=== PATIENT | male | born 1945 | race Caucasian/White ===

== ENCOUNTER 2020-01-31 21:32 | Inpatient (IN) | payer MEDICARE, OTHER ==
[~2020-01-31] VITALS: Ht 162.6 cm; Wt 77.1 kg
[~2020-01-31 21:32] MED LIST: ACETAMINOPHEN 650 MG/20.3 ML UDC GT PRN
[2020-01-31] MEDS ORDERED: IV NS 0.9% 1,000 ML IV ONE ×2 (21:38→23:30)
--- NOTE | 2020-01-31 21:45 | NUR ---
PATIENT CAME TO ER BED 8 C/O SYNCOPAL EVENT AT HOME. PATIENT STATES THAT HE TRIPPED AND FELL. PATIENT STATES THAT HE HIT HIS FOREHEAD. DENIES LOSING CONSCIOUSNESS. PATIENT CURRENTLY DENIES ANY PAIN. PATIENT IS AAOX4. BREATHING EVENLY AND UNLABORED ON 6L N/C. CONNECTED TO FLAT SHEET MAKER.
--- NOTE | 2020-01-31 21:46 | NUR ---
xray at bedside
[2020-01-31] MEDS ORDERED: ACETAMINOPHEN ES 500 MG TABLET ONE (21:48)
[2020-01-31] MEDS ORDERED: ACETAMINOPHEN ES 500 MG TABLET PO ONE (22:00)
--- NOTE | 2020-01-31 22:05 | NUR ---
BLOOD AND CULTURES ARE DRAWN AND SENT TO LAB
[2020-01-31 22:23] LABS: LYMPHOCYTES # (AUTO) 0.5 /CMM (0.8-4.8); MONOCYTES # (AUTO) 0.4 /CMM (0.1-1.30); NEUTROPHILS # (AUTO) 3.7 /CMM (1.8-8.9); WHITE BLOOD COUNT (AUTO) 4.6 K/uL (4.3-11.0)
[2020-01-31 22:27] LABS: BASOPHILS % (AUTO) 0.5 % (0.0-2.0); HEMATOCRIT 43 % (39-51); HEMOGLOBIN 14.9 g/dL (13.5-17.5); LYMPHOCYTES % (AUTO) 10.1 % (20.0-44.0); MEAN CORPUSCULAR HGB CONC 35 g/dl (31.0-36.0); MEAN CORPUSCULAR VOLUME 97 fL (80-96); MONOCYTES % (AUTO) 7.8 % (2.0-12.0); NEUTROPHILS % (AUTO) 81.6 % (43.0-81.0); RED BLOOD CELL COUNT(AUTO) 4.42 MIL/uL (4.5-6.0)
[2020-01-31 22:29] LABS: PLATELET COUNT (AUTO) 95 /CMM (150-450)
--- NOTE | 2020-01-31 22:45 | NUR ---
DR. MOYER SPEAKING WITH HOSPITALIST, JUAN ALBERTO WICK, HIGH SCHOOL HOME ECONOMICS TEACHER
--- NOTE | 2020-01-31 22:52 | NUR ---
CALLED FOR BED FORM NURSE SUP
[2020-01-31 22:59] LABS: CALCIUM, SERUM 8.4 mg/dL (8.5-10.1); CARBON DIOXIDE 27 mmol/L (21-32); CHLORIDE 102 mmol/L (98-107); CREATININE 1.1 mg/dL (0.6-1.3); GLUCOSE 204 mg/dL (74-106); POTASSIUM 3.6 mmol/L (3.5-5.1); SODIUM SERUM 138 mmol/L (136-145); UREA NITROGEN, BLOOD 23 mg/dL (7-18)
[2020-01-31 23:14] LABS: ALANINE AMINOTRANSFERASE 34 U/L (12-78); ALBUMIN 2.8 g/dL (3.4-5.0); ALKALINE PHOSPHATASE 70 U/L (46-116); ASPARTATE AMINOTRANSFERASE 58 U/L (15-37); B-TYPE NATRIURETIC PEPTIDE 475 PG/ML (0-125); TOTAL PROTEIN, SERUM 7.1 g/dL (6.4-8.2)
--- NOTE | 2020-01-31 23:15 | NUR ---
CORONAVIRUS SAMPLE SWAB COLLECTED AND SENT TO THE LAB.
[2020-01-31] MEDS ORDERED: ONDANSETRON HCL/PF 4 MG/2 ML VIAL IVP PRN (23:30)
[2020-01-31] MEDS ORDERED: ACETAMINOPHEN 325 MG TABLET PO PRN (23:30)
[2020-01-31] MEDS ORDERED: ALBUTEROL SULFATE 8 GM HFA.AER.AD IH PRN (23:30)
[2020-01-31] MEDS ORDERED: ACETAMINOPHEN 650 MG/SUPP.RECT RC PRN (23:30)
[2020-01-31] MEDS ORDERED: LIDOCAINE 2% JEL UROJET 10 ML MM ONE (23:35)
--- NOTE | 2020-01-31 23:42 | NUR ---
BED ASSIGNMENT 104
[2020-02-01] VITALS (7 sets, daily range): BP systolic 141–168; BP diastolic 72–87
[2020-02-01] MEDS ORDERED: LIDOCAINE 2% JEL UROJET 10 ML MM ONE
--- NOTE | 2020-02-01 | NUR ---
urine collected and sent to lab.
[2020-02-01 00:05] LABS: CREATINE KINASE, TOTAL 214 U/L (39-308); FERRITIN 3997 ng/mL (8-388)
--- NOTE | 2020-02-01 00:05 | NUR ---
ATTEMPTED TO CALL FOR REPORT, STAFF SAYS NURSE IS BUSY, TRY CALLING IN 5 MINUTES.
--- NOTE | 2020-02-01 00:17 | NUR ---
REPORT GIVEN TO FERNANDO MCKOY FOR BARBARA.
[2020-02-01 00:23] LABS: APPEARANCE,URINE Slightly Cloudy (CLEAR); BILIRUBIN,URINE SMALL (NEGATIVE); BLOOD, URINE Moderate Ery/uL (NEGATIVE); COLOR,URINE Amber (YELLOW); KETONES,URINE Trace (NEGATIVE); LEUKOCYTE ESTERASE ,URINE Negative (NEGATIVE); NITRITE, URINE Negative (NEGATIVE); PH,URINE 5.5 (5.0-8.0); PROTEIN,URINE 100 mg/dl (NEGATIVE); UGLUCOSE Negative (NEGATIVE)
[2020-02-01 00:26] LABS: BACTERIA,URINE Many /HPF (None Seen); SQUAMOUS EPITHELIAL CELL,UR Few /HPF (None Seen)
[2020-02-01 00:29] LABS: D-DIMER 1.46 mg/L(FEU (0.17-0.50)
--- NOTE | 2020-02-01 00:34 | NUR ---
PATIENT IS TAKEN UP TO ADMITTING ROOM.
--- NOTE | 2020-02-01 00:50 | NUR ---
DYE RANGE OPERATOR CLOTH NOTE ADMITTED 74 YEARS OLD MALE PT FROM ER WITH THE DX OF SEPSIS SECONDARY SUSPECTED COVID 19 WITH PNA BY RICKSHAW DRIVER DELANO. PT IS A/O X 4, CROATIAN SPEAKING. NO DISTRESS OR DISCOMFORT NOTED. DENIES PAIN. VSS. MASK IS ON MOUTH AND NOSE INTACT. REMINDED PT NOT TO REMOVE IT. SKIN ASSESSMENT DONE.SKIN INTACT. NOTED ENLARGED SCROTUM. PER PT NO PAIN. ADMITTING ORDERS CHECKED. AND CARRIED OUT. ORIENTED THE PT TO HIS ROOM. RAC #20 G IV LINE INTACT. STARTED IVF NS AT 50 ML/HR, NO S/S OF INFILTRATION NOTED. KEPT HIM DRY AND CLEAN. ALL NEEDS ATTENDED. SIDE RAILS UP X 2 AND CALL LIGHT WITHIN REACH. CONTINUE TO MONITOR HIM.
--- NOTE | 2020-02-01 00:50 | NUR ---
[address] YIMI MOYER CALLED AND GAVE ORDERS FOR CEFTRIAXONE 1GM IVPB ONE DOSE NOW, AND AZITHROMYCIN 500MG IVPB ONE DOSE NOW THEN EVERY 24 HOURS. ORDER NOTED, PHARMACIST CLIF MADE AWARE.
[2020-02-01] MEDS ORDERED: CEFTRIAXONE 1 G in IV D5W 50 ML IV ONE (01:00)
--- NOTE | 2020-02-01 01:12 | NUR ---
PUBLICIST NOTE ON TELE MONITOR SB 48.
[2020-02-01 01:17] LABS: BILIRUBIN,DIRECT 0.4 mg/dL (0.0-0.2)
[2020-02-01 01:24] LABS: C-REACTIVE PROTEIN 17.8 mg/dL (0.0-0.9)
[2020-02-01] MEDS ORDERED: AZITHROMYCIN 500 MG in IV D5W 250 ML IV SCH ×3 (01:30→08:28)
[2020-02-01] MEDS ORDERED: CEFTRIAXONE 1 G VIAL ONE (01:40)
[2020-02-01] MEDS ORDERED: AZITHROMYCIN 500 MG VIAL ONE (01:54)
--- NOTE | 2020-02-01 03:55 | NUR ---
CHILDREN'S AIDE NOTE PT IN BED ASLEEP, NO DISTRESS OR DISCOMFORT NOTED. PT IS SB 42, IVF INFUSING WELL, NO S/S OF INFILTRATION NOTED.
--- NOTE | 2020-02-01 06:19 | NUR ---
CONTACT LENS ASSISTANT NOTE PT IN BED ASLEEP, AROUSABLE. NO DISTRESS OR DISCOMFORT NOTED. DENIES PAIN. IVF INFUSING WELL, NO S/S INFILTRATION NOTED. ON TELE SB 44. ALL NEEDS ATTENDED. SIDE RAILS UP X 2 AND CALL LIGHT WITHIN REACH. WILL ENDORSE TO DAY SHIFT NURSE FOR CONTINUE TO CARE.
--- NOTE | 2020-02-01 07:20 | NUR ---
AIR SURVEILLANCE OPERATOR NOTES PATIENT IN BED ALERT ORIENTED X 3. NO ACUTE DISTRESS NOTED. BREATHING UNLABORED. IV ACCESS PATENT AND INTACT, NO REDNESS NO SWELLING NOTED. SAFETY MEASURES IN PLACE, CALL LIGHT WITHIN EACH WILL CONTINUE TO MONITOR ACCORDINGLY
[2020-02-01] MEDS: methylPREDNISolone SOD SUCC 40 MG/ML VIAL IV SCH ×3 (08:58→16:06)
[2020-02-01] MEDS: ENOXAPARIN SODIUM 40 MG/0.4 ML DISP.SYRIN SQ SCH (08:58)
[2020-02-01] MEDS: CEFEPIME 2 GM in IV D5W 100 ML IV SCH ×2 (12:30→22:29)
--- NOTE | 2020-02-01 17:00 | NUR ---
CUSHION BUILDER NOTES RECEIVED PATIENT FROM EMERGENCY ROOM , ALERT ORIENTED X 3. NO ACUTE DISTRESS NOTED. NO SOB NOTED. BREATHING UNLABORED. ORIENTED TO THE ROOM. NEEDS ATTENDED AND ANTICIPATED. WILL CONTINUE TO MONITOR PATIENT. Addendum: 02/01/20 at 1746 by TIANNA ANDRES RN disregard above notes, wrong patient
--- NOTE | 2020-02-01 18:51 | NUR ---
DIPPER CLOCK AND WATCH HANDS NOTES PATIENT IN BED ALERT ORIENTED X 3. NO ACUTE DISTRESS NOTED. BREATHING UNLABORED. IV ACCESS PATENT AND INTACT, NO REDNESS NO SWELLING NOTED. SAFETY MEASURES IN PLACE. NEEDS ATTENDED AND ANTICIPATED. KEPT CLEAN DRY AND COMFORTABLE. CALL LIGHT WITHIN EACH . WILL ENDORSE TO NIGHT NURSE FOR CONTINUITY OF CARE.
--- NOTE | 2020-02-01 19:45 | NUR ---
RN OPENING NOTE PT RECEIVED IN BED LAYING DOWN COMFORTABLY. PT IS A/A/O X4.THERE IS NO S/S OF DISTRESS. PT ON 6 L VIA NC SATING 95%. PT HAS UNLABORED BREATHING. PT HAS 20 G ON RAC RUNNING NS 50 ML /H. IV DRESSING IS INTACT. SAFETY MEASURES IN PLACE BED AT LOWEST POSITION, LOCKED, CALL LIGHT IN REACH ,S FLIP RAILS UP X2. WILL CONTINUE TO MONITOR.
--- NOTE | 2020-02-01 20:20 | NUR ---
RN NOTE PT ON 6 L NC DSATTING FROM 95% TO 85%. NO S/S OF RESPIRATORY DISTRESS, NO SOB.RT PUT NON REBREATHER MASK ON 15 L AND O2 SAT IS 94%. EVENT MANAGER MADE AWARE ( JUAN ALBERTO). WILL CONTINUE TO MONITOR.
--- NOTE | 2020-02-01 23:00 | NUR ---
BUSINESS ACCOUNT EXECUTIVE NOTE SERGER DELANO VISITED THE PT, PT REMAIN ON NRB MASK WITH 15L O2 SAT 93%, PER SERGER CONTINUE TO MONITOR HIM. CXR IN AM AND IF DE SAT THEN DO ABG. CONTINUE TO MONITOR .
[2020-02-01] MEDS: AZITHROMYCIN 500 MG in IV D5W 250 ML IV SCH (23:40)
[2020-02-02] VITALS (34 sets, daily range): BP systolic 78–221; BP diastolic 39–132
[2020-02-02 00:27] LABS: ABG BASE EXCESS -2.6 mmol/L; ABG PH 7.482 (7.350-7.450); ABG PO2 59.2 mmHg (75.0-100.0); AaDO2 627.8 mmHg; COHb 0.8 % (0.5-1.5); MetHb 0.3 % (0.0-1.5); SITE, ABG Right Brachial; VENT MODE, BG NRB 100%
[2020-02-02] MEDS ORDERED: FUROSEMIDE 20 MG/2 ML VIAL IV SCH (00:30)
--- NOTE | 2020-02-02 00:33 | NUR ---
MARBLE INSTALLER SUPERVISOR NOTE DELANO INVENTORY WORKER VISITED AND GAVE NEW ORDER, ORDER NOTED AND CARRIED OUT.
[2020-02-02] MEDS ORDERED: POTASSIUM CHLORIDE 20 MEQ TAB.PRT.SR PO ONE (01:00)
--- NOTE | 2020-02-02 02:18 | NUR ---
MEDICAL ORDERLY NOTE PT KEPT ON REMOVING THE NRB MASK O2 SAT DROPPING. INFORMED KE HAND WEAVER AND RECEIVED NEW ORDER FOR SOFT WRIST RESTRAINTS. CONTINUE TO MONITOR HIM BY NURSE NATARAJAN.
--- NOTE | 2020-02-02 03:00 | NUR ---
STEEL CONSTRUCTION WORKER NOTE PT DESATURATING 86% ON 15L NRB MASK. INFORMED KE NOVELTY WORKER. RECEIVED NEW ORDER TO TRANSFER THE PT TO ICU. ORDER NOTED AND CARRIED OUT.
--- NOTE | 2020-02-02 03:05 | NUR ---
RN NOTE PT O2 SAT IS GOING DOWN TO 86% WHILE ON 15 L VIA NON REBREATHER , PT IS BEING TRANSFERRED TO ICU.
--- NOTE | 2020-02-02 03:35 | NUR ---
RN NOTE PT TRANSFERRED TO ICU PER ACLS PROTOCOL. REPORT GIVEN TO THE NURSE AT BED SIDE.
--- NOTE | 2020-02-02 03:35 | NUR ---
RN NOTES RECEIVED TRANSFERRED PATIENT FROM [facility]. PATIENT IS AOX3 ABLE TO COMMUNICATE WITH O2 15LPM VIA NON REBREATHER MASK UNLABORED BREATHING SATURATION 87% UNKNOWN MEDICAL HISTORY. STRICTLY ON ISOLATION TO R/O COVID 19 PNA. INFORMED ABG OF PO2 59.2 PCO2 26 PH 7.482, HCO3 19 AWAITING FOR ORDER. IV SITE ON RAC INTACT AND PATENT. KEPT PT CLEAN AND DRY. SKIN IS INTACT. CALL LIGHT KEPT WITHIN EASY REACH. WILL CLOSELY MONITOR
[2020-02-02] MEDS ORDERED: FUROSEMIDE 20 MG/2 ML VIAL IV ONE (04:00)
[2020-02-02 04:35] LABS: BASOPHILS % (AUTO) 0.2 % (0.0-2.0); HEMATOCRIT 49 % (39-51); HEMOGLOBIN 16.5 g/dL (13.5-17.5); LYMPHOCYTES # (AUTO) 0.5 /CMM (0.8-4.8); LYMPHOCYTES % (AUTO) 8.8 % (20.0-44.0); MEAN CORPUSCULAR HGB CONC 34 g/dl (31.0-36.0); MEAN CORPUSCULAR VOLUME 98 fL (80-96); MONOCYTES # (AUTO) 0.3 /CMM (0.1-1.30); NEUTROPHILS # (AUTO) 4.6 /CMM (1.8-8.9); PLATELET COUNT (AUTO) 110 /CMM (150-450); RED BLOOD CELL COUNT(AUTO) 4.99 MIL/uL (4.5-6.0); WHITE BLOOD COUNT (AUTO) 5.4 K/uL (4.3-11.0)
[2020-02-02 04:46] LABS: ALANINE AMINOTRANSFERASE 26 U/L (12-78); ALBUMIN 2.6 g/dL (3.4-5.0); ALKALINE PHOSPHATASE 60 U/L (46-116); ASPARTATE AMINOTRANSFERASE 46 U/L (15-37); CARBON DIOXIDE 22 mmol/L (21-32); CHLORIDE 102 mmol/L (98-107); CREATININE 1.1 mg/dL (0.6-1.3); GLUCOSE 326 mg/dL (74-106); PHOSPHORUS 2.1 mg/dL (2.5-4.9); POTASSIUM 3.6 mmol/L (3.5-5.1); SODIUM SERUM 137 mmol/L (136-145); TOTAL PROTEIN, SERUM 7.1 g/dL (6.4-8.2); UREA NITROGEN, BLOOD 18 mg/dL (7-18)
--- NOTE | 2020-02-02 05:51 | NUR ---
RN NOTES ASSISTED TO COMMODE BM X 1 AND USE URINAL WITH ASSIST.FREQ. REMINDED TO USE CALL LIGHT FOR ASSISTANCE. BED IN LOWEST POSSIBLE POSITION. OTONIEL. SOFT WRIST RESTRAINT RELEASE PATIENT IS COMPLIANT WITH CARE AT THIS TIME WITHOUT PULLING ANYTHING. WILL CONTINUE TO MONITOR.
[2020-02-02 05:58] LABS: FERRITIN 3435 ng/mL (8-388)
[2020-02-02] MEDS ORDERED: INSULIN REGULAR, HUMAN 100 UNIT/ML 3 ML VIAL SQ PRN ×2 (08:00→18:00)
[2020-02-02] MEDS ORDERED: DEXTROSE 50%-WATER 50 ML DISP.SYRIN IV PRN ×2 (08:00→14:00)
[2020-02-02] MEDS ORDERED: BLOOD SUGAR DIAGNOSTIC 1 EACH STRIP VI SCH ×2 (08:00→18:00)
[2020-02-02] MEDS ORDERED: *INSULIN REGULAR(HUMULIN R)HUM 100 UNIT/ML VIAL SQ PRN (08:00)
[2020-02-02] MEDS: methylPREDNISolone SOD SUCC 40 MG/ML VIAL IV SCH ×3 (08:49→17:21)
[2020-02-02] MEDS: ENOXAPARIN SODIUM 40 MG/0.4 ML DISP.SYRIN SQ SCH (08:50)
[2020-02-02] MEDS: CEFEPIME 2 GM in IV D5W 100 ML IV SCH ×2 (10:18→21:31)
[2020-02-02 10:29] LABS: ABG BASE EXCESS -0.4 mmol/L; ABG OXYGEN SATURATION 86.9 % (92.0-98.5); ABG PCO2 27.3 mmHg (35.0-45.0); ABG PH 7.504 (7.350-7.450); AaDO2 637.7 mmHg; COHb 0.6 % (0.5-1.5); MetHb 0.3 % (0.0-1.5); O2Hb 86.1 % (94.0-97.0); SITE, ABG Right Brachial; VENT MODE, BG HFNC 100%
--- NOTE | 2020-02-02 10:45 | NUR ---
ABG DONE ON HIGH FLOW-100% AT 60 LITERS. RESULTS REPORTE TO DR. SEVERINO AND DR. SALAZAR. OKAY TO INTUBATE. FAMILY MADE AWARE , SPOKE TO LANE AND UPDATED WITH PLAN OF CARE. AGREED TO INTUBATE PATIENT. NURSING DIESEL LOCOMOTIVE FIRER/FIREMAN, SUMAN CALLED FOR ANESTHESIA INTUBATION.
[2020-02-02] MEDS ORDERED: K PHOS NEUTRAL 250 MG TABLET PO ONE (11:00)
[2020-02-02] MEDS ORDERED: PROPOFOL 10MG/ML 50ML 50 ML IV PRN (12:00)
[2020-02-02] MEDS: PROPOFOL 10MG/ML 50ML 50 ML IV PRN ×3 (13:36→21:23)
[2020-02-02 13:59] LABS: ABG BASE EXCESS -1.9 mmol/L; ABG OXYGEN SATURATION 99.8 % (92.0-98.5); ABG PCO2 35.9 mmHg (35.0-45.0); ABG PH 7.408 (7.350-7.450); ABG PO2 428.3 mmHg (75.0-100.0); AaDO2 248.8 mmHg; COHb 0.5 % (0.5-1.5); MetHb 0.2 % (0.0-1.5); O2Hb 99.1 % (94.0-97.0); PEEP,BG 10 cm H2O; SITE, ABG Right Brachial; VENT MODE, BG AC 22 500 +10 100%
[2020-02-02] MEDS ORDERED: NEUTRA PHOS 1 POWD.PACKET NG ONE (14:00)
[2020-02-02] MEDS ORDERED: ETOMIDATE 2 MG/ML VIAL IV ONE (14:19)
[2020-02-02] MEDS ORDERED: ROCURONIUM BROMIDE 50 MG/5 ML IV ONE (14:19)
[2020-02-02] MEDS: BLOOD SUGAR DIAGNOSTIC 1 EACH STRIP IN SCH (17:22)
[2020-02-02] MEDS: INSULIN REGULAR, HUMAN 100 UNIT/ML 3 ML VIAL SQ PRN (18:01)
--- NOTE | 2020-02-02 18:15 | NUR ---
ICU/RN: Pt was received awake and alert, Mauritanian speaking only. Pt was on non-rebreather mask at 15LPM. Pt kept removing the mask and was desaturating to the 70's everytime he removes the mask in spite of teaching the pt in Mauritanian by Clarisa FOURNIER how important it was. Pt was eventually put on high flow nasal canula at 100% but was still desaturating on the 80's. ABG was done as ordered, and eventually was given an order to intubate the pt. Family was informed, fitting room checker and Dr. James were okay to intubate. Propofol was initiated, NGT was placed, placement was confirmed with Guilherme drier tender. Pt remains on AC mode as ordered. Appears comfortable, afebrile all day. Estelle Vaughn (granddaughter) who is the next of kin and the spokesperson of the family was updated today, tel number placed in chart. Will give report to shift commander.
--- NOTE | 2020-02-02 19:30 | NUR ---
RN NOTES RECEIVED PATIENT WITH ETT 7 AND 22 CM AT LIPLINE WITH VENT SETTING AC 22 TV 500 FIO2 50% AND PEEP 10 TOLERATED WELL. CALM AND COOPERATIVE ON DIPRIVAN @ 15 MCG/KG/IN. SINUS KWASI ON TELE MONITOR HR 50'S. NGT INTACT AND PATENT. HOB KEPT ELEVATED. IV SITE ON RAC G 20 AND RH INTACT WITH GOOD BLOOD RETURN. KEPT CLEAN AND DRY. TURN AND REPOSITION AND KEPT PT COMFORTABLE. WILL CONTINUE WITH POC.
[2020-02-02] MEDS ORDERED: NOREPINEPHRINE 8 MG in IV NS 0.9% 242 ML IV PRN (22:00)
[2020-02-02] MEDS: AZITHROMYCIN 500 MG in IV D5W 250 ML IV SCH (23:30)
[2020-02-03] VITALS (68 sets, daily range): BP systolic 80–163; BP diastolic 39–123
[2020-02-03] MEDS: BLOOD SUGAR DIAGNOSTIC 1 EACH STRIP IN SCH ×5 (00:10→23:36)
[2020-02-03] MEDS: INSULIN REGULAR, HUMAN 100 UNIT/ML 3 ML VIAL SQ PRN ×5 (00:11→23:39)
--- NOTE | 2020-02-03 00:55 | NUR ---
RN NOTES INSERTED PICC LINE ON YOVANI AND TOLERATED WELL. GOT CONSENT FROM FARTUN, NO BLEEDING KEPT PT CLEAN AND DRY.
[2020-02-03] MEDS ORDERED: DOPamine 400 MG in IV D5W 250 ML IV PRN (02:30)
[2020-02-03] MEDS: PROPOFOL 10MG/ML 50ML 50 ML IV PRN ×4 (02:31→19:32)
[2020-02-03] MEDS ORDERED: DOPamine 400MG/D5W 250ML RTU 250 ML ONE (02:32)
--- NOTE | 2020-02-03 02:45 | NUR ---
RN NOTES DOPAMINE STARTED PER JUAN ALBERTO APPEALS REVIEWER VETERAN. PATIENT SBP IS 88 MMHG AND HR IS 48. WILL CONTINUE TO MONITOR.
[2020-02-03 04:23] LABS: BASOPHILS % (AUTO) 0.1 % (0.0-2.0); HEMATOCRIT 43 % (39-51); HEMOGLOBIN 14.6 g/dL (13.5-17.5); LYMPHOCYTES # (AUTO) 0.4 /CMM (0.8-4.8); LYMPHOCYTES % (AUTO) 7.7 % (20.0-44.0); MEAN CORPUSCULAR HGB CONC 34 g/dl (31.0-36.0); MEAN CORPUSCULAR VOLUME 99 fL (80-96); MONOCYTES # (AUTO) 0.3 /CMM (0.1-1.30); MONOCYTES % (AUTO) 5.6 % (2.0-12.0); NEUTROPHILS # (AUTO) 4.9 /CMM (1.8-8.9); NEUTROPHILS % (AUTO) 86.6 % (43.0-81.0); PLATELET COUNT (AUTO) 126 /CMM (150-450); RED BLOOD CELL COUNT(AUTO) 4.32 MIL/uL (4.5-6.0); WHITE BLOOD COUNT (AUTO) 5.6 K/uL (4.3-11.0)
[2020-02-03 05:01] LABS: CALCIUM, SERUM 7.8 mg/dL (8.5-10.1); CREATININE 1.3 mg/dL (0.6-1.3); MAGNESIUM 2.4 mg/dL (1.8-2.4); PHOSPHORUS 3.5 mg/dL (2.5-4.9)
[2020-02-03 05:33] LABS: C-REACTIVE PROTEIN 9.5 mg/dL (0.0-0.9)
--- NOTE | 2020-02-03 06:25 | NUR ---
RN OPENING NOTES Patient is orally intubated on AC 22, Peep8, Fi02 40% and Tv 500, tolerating well. client responds to light pain, and simple commands. The patient is sedated. The client is on external monitor. BP 105/39 and HR @ 78; with Peaked T waves, will continue to monitor. Client remains stable at this time. YOVANI picc running propofol at 25mcg/hr. F/C draining well. All safety mechanisms in place, will continue to monitor.
--- NOTE | 2020-02-03 07:11 | NUR ---
RN NOTES PATIENT REMAINED ORALLY INTUBATED. NO CHANGE FROM ETT AND VENT SETTING, TOLERATED WELL. NO ACUTE RESP. DISTRESS. REMAINED AOX3 DESPITE OF DIPRIVAN ONGOING. PATIENT IS CALM AND COOPERATIVE ON DIPRIVAN @ 15 MCG/KG/MIN, IV SITE ON RAC INTACT AND PATENT. DOPAMINE HELD AT THIS TIME. CONTINUE WITH ACCU CHECK. LAST BLD. SUGAR 284 MG/DL INSULIN PER SLIDING SCALE ADMINISTERED. BED BATH DONE AND TOLERATED. MEANS CATH REMAINED INTACT AND PATENT/ ENDORSED CONTINUITY OF CARE TO AM NURSE.
[2020-02-03] MEDS: ENOXAPARIN SODIUM 40 MG/0.4 ML DISP.SYRIN SQ SCH (07:50)
[2020-02-03] MEDS: methylPREDNISolone SOD SUCC 40 MG/ML VIAL IV SCH ×3 (08:09→17:18)
[2020-02-03] MEDS: CEFEPIME 2 GM in IV D5W 100 ML IV SCH ×2 (08:09→20:15)
[2020-02-03] MEDS ORDERED: HYDROCORTISONE SOD SUCCINATE 100 MG/2 ML VIAL IV SCH (09:00)
[2020-02-03] MEDS: POTASSIUM CL. PREMIX PERIPHER. 50 ML IV SCH ×5 (11:44→18:19)
[2020-02-03] MEDS ORDERED: INVESTIGATIONAL MED MISC 1 EA in IV NS 0.9% 250 ML IV ONE (15:00)
--- NOTE | 2020-02-03 18:44 | NUR ---
rn surgery icu pt remAINS orally intubated on ac 22, peep down to 8, fi02 down to 40% NOW WITH TV500, tolerating well. remains sedated on PROPOFOL. RENDESIVIR STARTED TODAY, WAITING ON THE CONVALESCENT PLASMA FOR TRANSFUSION. CONSENT OBTAINED FROM THE FAMILY. SCROTAL INFLAMMATION NOTED AND WILL ADDRESS TRAMAINE TO DR. SEVERINO, PT'S FAMILY STATED HE HAS THIS PROBLEM FOR ABOUT A YEAR NOW BUT IS GETTING BIGGER. STILL NPO EXCEPT MEDS FOR NOW, BLOOD SUGARS DONE EVERY 6 HOURS WITH INSULIN SLIDING SCALE. TODAY WAS UNEVENTFUL. WILL GIVE REPORT TO SEASONAL RETAIL MERCHANDISER
--- NOTE | 2020-02-03 23:00 | NUR ---
RN NOTES: Informed MD about the change in blood pressure: BP 80/40; HR 39; Peaked T waves. CONCRETE POLISHER approved to recheck Potassium and Magnesium. Will keep monitoring.
--- NOTE | 2020-02-03 23:01 | NUR ---
RN NOTES PROFESSOR OF ART HISTORY was also made aware that the patient has been restarted on Dopamine. See previous note for VS.
[2020-02-03] MEDS: AZITHROMYCIN 500 MG in IV D5W 250 ML IV SCH (23:27)
[2020-02-04] VITALS (80 sets, daily range): BP systolic 90–173; BP diastolic 49–104
[2020-02-04 00:05] LABS: MAGNESIUM 2.4 mg/dL (1.8-2.4); POTASSIUM 3.8 mmol/L (3.5-5.1)
[2020-02-04] MEDS: PROPOFOL 10MG/ML 50ML 50 ML IV PRN ×3 (00:55→21:30)
--- NOTE | 2020-02-04 01:38 | NUR ---
RN NOTES PATIENT STAT POTASSIUM AND MAGNESIUM LAB RESULT WNL, ON TELE MONITOR STILL HAVE PEAKED T-WAVES, CHARGE NURSE MADE AWARE AND STATED OKAY TO ORDER STAT EKG AND TROPONIN FOR AM LAB. WILL CONT TO MONITOR PT CLOSELY.
[2020-02-04 05:26] LABS: ALBUMIN 2.3 g/dL (3.4-5.0); BILIRUBIN,TOTAL 0.7 mg/dL (0.2-1.0); TOTAL PROTEIN, SERUM 6.3 g/dL (6.4-8.2)
[2020-02-04 05:43] LABS: BILIRUBIN,DIRECT 0.3 mg/dL (0.0-0.2)
[2020-02-04] MEDS: BLOOD SUGAR DIAGNOSTIC 1 EACH STRIP IN SCH ×4 (05:55→23:48)
[2020-02-04] MEDS: INSULIN REGULAR, HUMAN 100 UNIT/ML 3 ML VIAL SQ PRN ×4 (06:08→23:49)
--- NOTE | 2020-02-04 06:12 | NUR ---
RN CLOSING NOTES Patient remains orally intubated on AC 22, Peep8, Fi02 40% and Tv 500, tolerating well. The patient remains sedated. The client is on external monitor. BP 136/104 and HR @ 50; recurrent episodes of low BP, at times sbp 80/ dbp 50, with Peaked T waves, hospitalist is aware. Dopamine was given to maintain SBP > 90. Client remains stable at this time. YOVANI picc running propofol at 20mcg/hr. F/C draining well. Skin is intact. All safety mechanisms in place, will endorse the next shift for continuity of care.
[2020-02-04] MEDS: methylPREDNISolone SOD SUCC 40 MG/ML VIAL IV SCH ×3 (08:54→17:54)
[2020-02-04] MEDS: ENOXAPARIN SODIUM 40 MG/0.4 ML DISP.SYRIN SQ SCH (08:55)
[2020-02-04] MEDS: CEFEPIME 2 GM in IV D5W 100 ML IV SCH ×2 (08:57→20:30)
[2020-02-04 09:00] LABS: BASOPHILS % (AUTO) 0.3 % (0.0-2.0); HEMATOCRIT 46 % (39-51); HEMOGLOBIN 15.1 g/dL (13.5-17.5); LYMPHOCYTES # (AUTO) 0.7 /CMM (0.8-4.8); LYMPHOCYTES % (AUTO) 9.5 % (20.0-44.0); MEAN CORPUSCULAR HGB CONC 33 g/dl (31.0-36.0); MEAN CORPUSCULAR VOLUME 99 fL (80-96); MONOCYTES # (AUTO) 0.6 /CMM (0.1-1.30); MONOCYTES % (AUTO) 7.3 % (2.0-12.0); NEUTROPHILS # (AUTO) 6.4 /CMM (1.8-8.9); NEUTROPHILS % (AUTO) 82.9 % (43.0-81.0); PLATELET COUNT (AUTO) 117 /CMM (150-450); RED BLOOD CELL COUNT(AUTO) 4.63 MIL/uL (4.5-6.0); WHITE BLOOD COUNT (AUTO) 7.7 K/uL (4.3-11.0)
[2020-02-04 09:32] LABS: CREATININE 1.3 mg/dL (0.6-1.3); MAGNESIUM 2.6 mg/dL (1.8-2.4); PHOSPHORUS 3.3 mg/dL (2.5-4.9)
[2020-02-04 12:45] LABS: ABG BASE EXCESS -2.5 mmol/L; ABG OXYGEN SATURATION 93.4 % (92.0-98.5); ABG PCO2 27.1 mmHg (35.0-45.0); ABG PH 7.475 (7.350-7.450); ABG PO2 66.3 mmHg (75.0-100.0); AaDO2 187.7 mmHg; COHb 0.6 % (0.5-1.5); MetHb 0.3 % (0.0-1.5); O2Hb 92.6 % (94.0-97.0); SITE, ABG Left Brachial; VENT MODE, BG CPAP 5 PSV6 40%
[2020-02-04] MEDS: INVESTIGATIONAL MED MISC 1 EA in IV NS 0.9% 250 ML IV SCH (17:54)
--- NOTE | 2020-02-04 18:08 | NUR ---
RN/ICU: Pt was received sedated with Propofol, ET to vent on Ac mode as ordered. Sedation vacation done this am, was fully awake and was on CPAP x 1 hour, ABG was done, Dr. Lam was made aware of the results. Pt was ordered to be placed back on AC mode, Propofol restarted. NGT clamped, Cross patent and intact, 300 cc urine output. Still reciving Rendesivir, still awaiting for conv plasma. No skin breakdown noted. Will give report to building materials sales attendant. Addendum: 02/04/20 at 1841 by KAREN JOSHI RN HR drops down to 38 -40 very rarely, Hr is usually on the mid to high 40's. Dr. James and Dr. Merrill are made aware, no new order was placed. Will cont to monitor for now.
--- NOTE | 2020-02-04 19:05 | NUR ---
RN OPENING NOTES RECEIVED PT ON BED SEDATED WITH PROPOFOL @ 5MCG/KG/MIN VIA YOVANI PICC INFUSING WEL, NO SIGN AND SYMPTOMS OF RESPIRATORY DISTRESS SPO2 99% VIA ETT/VENT SETTINF ORDERED, ON BEDSIDE MONITOR WITH READING SINUS ANNETTE 37-38 BPM CHARGE NURSE AWARE, MARKETING PROPOSAL SPECIALIST ALSO AWARE PER AM SHIFT ENDORSEMENT, WILL CONT TO MONITOR, SBP IS ON 140'S TEMP IS 97.8F ON BILATERAL WRIST SOFT RESTRAINTS CIRCULATION WILL BE CHECKED REGULARLY, ON DROPLET ISOLATION FOR COVID (+) MAINTAINED, SAFETY MEASURE MAINTAINED WILL CONT TO MONITOR
[2020-02-04] MEDS: AZITHROMYCIN 500 MG in IV D5W 250 ML IV SCH (23:05)
[2020-02-05] VITALS (45 sets, daily range): BP systolic 128–197; BP diastolic 52–89
[2020-02-05] MEDS: PROPOFOL 10MG/ML 50ML 50 ML IV PRN (02:31)
[2020-02-05 04:41] LABS: BASOPHILS # (AUTO) 0.1 /CMM (0.0-0.2); BASOPHILS % (AUTO) 1.1 % (0.0-2.0); HEMATOCRIT 42 % (39-51); LYMPHOCYTES # (AUTO) 0.5 /CMM (0.8-4.8); LYMPHOCYTES % (AUTO) 9.1 % (20.0-44.0); MEAN CORPUSCULAR HGB CONC 33 g/dl (31.0-36.0); MEAN CORPUSCULAR VOLUME 100 fL (80-96); MONOCYTES # (AUTO) 0.4 /CMM (0.1-1.30); MONOCYTES % (AUTO) 6.7 % (2.0-12.0); NEUTROPHILS # (AUTO) 4.5 /CMM (1.8-8.9); NEUTROPHILS % (AUTO) 83.1 % (43.0-81.0); PLATELET COUNT (AUTO) 111 /CMM (150-450); RED BLOOD CELL COUNT(AUTO) 4.25 MIL/uL (4.5-6.0); WHITE BLOOD COUNT (AUTO) 5.4 K/uL (4.3-11.0)
[2020-02-05 05:02] LABS: ALBUMIN 2.1 g/dL (3.4-5.0); BILIRUBIN,DIRECT 0.2 mg/dL (0.0-0.2); BILIRUBIN,TOTAL 0.6 mg/dL (0.2-1.0); TOTAL PROTEIN, SERUM 5.9 g/dL (6.4-8.2)
[2020-02-05 05:08] LABS: ALANINE AMINOTRANSFERASE 34 U/L (12-78); ALBUMIN 2.1 g/dL (3.4-5.0); ALKALINE PHOSPHATASE 53 U/L (46-116); ASPARTATE AMINOTRANSFERASE 33 U/L (15-37); BILIRUBIN,TOTAL 0.6 mg/dL (0.2-1.0); CALCIUM, SERUM 7.9 mg/dL (8.5-10.1); CARBON DIOXIDE 26 mmol/L (21-32); CHLORIDE 109 mmol/L (98-107); CREATININE 1.2 mg/dL (0.6-1.3); GLUCOSE 262 mg/dL (74-106); MAGNESIUM 2.8 mg/dL (1.8-2.4); PHOSPHORUS 3.4 mg/dL (2.5-4.9); POTASSIUM 3.8 mmol/L (3.5-5.1); SODIUM SERUM 143 mmol/L (136-145); TOTAL PROTEIN, SERUM 5.9 g/dL (6.4-8.2); UREA NITROGEN, BLOOD 47 mg/dL (7-18)
[2020-02-05] MEDS: BLOOD SUGAR DIAGNOSTIC 1 EACH STRIP IN SCH ×4 (05:59→23:36)
[2020-02-05] MEDS: INSULIN REGULAR, HUMAN 100 UNIT/ML 3 ML VIAL SQ PRN ×4 (06:03→23:36)
--- NOTE | 2020-02-05 08:00 | NUR ---
RN NOTES PT ON BED ASLEEP EASY TO AWAKE ON PROPOFOL @ 5MCG/KG/MIN, STILL ON ETT/VENT SETTING ORDERED TOLERATING WELL SPO2 99%, NO SIGNIFICANT CHANGES ON CONDITION NOTED, HR STILL ON 38-[address] NGUYỄN AWARE WITH NO NEW ORDER, DROPLET ISOLATION MAINTAINED SAFETY PRECAUTION OBSERVE, WILL CONT TO MONITOR
[2020-02-05] MEDS: ENOXAPARIN SODIUM 40 MG/0.4 ML DISP.SYRIN SQ SCH (08:02)
[2020-02-05] MEDS: methylPREDNISolone SOD SUCC 40 MG/ML VIAL IV SCH ×3 (08:03→16:49)
[2020-02-05] MEDS: CEFEPIME 2 GM in IV D5W 100 ML IV SCH ×2 (08:31→21:00)
--- NOTE | 2020-02-05 10:00 | NUR ---
RN NOTES SEEN BY DR. SEVERINO WITH ORDER FOR US SCROTUM CONTENT, SEEN BY DR SALAZAR WITH ORDER TO STOP PROPOFOL AND CHANGES VENT SETTING TO CPAP PEEP +5 AND PSV 10 THEN DO ABG AFTER 1 HR, NOTED AND CARRIED OUT
[2020-02-05 12:22] LABS: ABG BASE EXCESS -1.4 mmol/L; ABG OXYGEN SATURATION 94.1 % (92.0-98.5); ABG PCO2 29.4 mmHg (35.0-45.0); ABG PH 7.467 (7.350-7.450); ABG PO2 69.2 mmHg (75.0-100.0); AaDO2 182.2 mmHg; COHb 0.8 % (0.5-1.5); MetHb 0.2 % (0.0-1.5); O2Hb 93.2 % (94.0-97.0); SITE, ABG Left Radial; VENT MODE, BG CPAP
[2020-02-05] MEDS: INVESTIGATIONAL MED MISC 1 EA in IV NS 0.9% 250 ML IV SCH (18:15)
--- NOTE | 2020-02-05 18:49 | NUR ---
RN NOTES PT ON BED ASLEEP EASY TO AWAKE ON STILL ON ETT/VENT SETTING ORDERED TOLERATING WELL SPO2 99%, NO SIGNIFICANT CHANGES ON CONDITION NOTED, HR STILL ON 38-[address] NGUYỄN AND DR. SEVERINO AWARE WITH NO NEW ORDER, DROPLET ISOLATION MAINTAINED SAFETY PRECAUTION OBSERVE, WILL CONT TO MONITOR
--- NOTE | 2020-02-05 20:00 | NUR ---
Received patient awake non verbal orally intubated follows simple commands.Patient tachypneic RR 44 on CPAP 40% sating 97%.SB 39-40's..BP elevated MD aware.No orders.OGT intact and clamped.NPO status.IVF NS at TKO infusing via YOVANI PICC Line and site intact.FC to gravity. Turned and reposition.Dx: SEPSIS,COVID 19+.Droplet/Contact isolation precaution implemented. Continue monitoring.
--- NOTE | 2020-02-05 22:00 | NUR ---
Patient remains tachypeic RR 38-45, BP 185-76 patient looks tired.RT notified and changed vent settings to previous settings AC 22,TV 500 ,FIO2 40%,PEEP 5.SECRETARY TO THE VICE PRESIDENT,[place] notified. Continue to monitor.
[2020-02-05] MEDS: AZITHROMYCIN 500 MG in IV D5W 250 ML IV SCH (23:34)
[2020-02-06] VITALS (28 sets, daily range): BP systolic 118–179; BP diastolic 56–93
[2020-02-06 04:51] LABS: ALBUMIN 2.1 g/dL (3.4-5.0); BILIRUBIN,DIRECT 0.3 mg/dL (0.0-0.2); BILIRUBIN,TOTAL 0.7 mg/dL (0.2-1.0); TOTAL PROTEIN, SERUM 5.7 g/dL (6.4-8.2)
[2020-02-06] MEDS: INSULIN REGULAR, HUMAN 100 UNIT/ML 3 ML VIAL SQ PRN ×4 (05:06→23:26)
[2020-02-06] MEDS: BLOOD SUGAR DIAGNOSTIC 1 EACH STRIP IN SCH ×4 (05:29→23:23)
--- NOTE | 2020-02-06 07:13 | NUR ---
Patient resting appears comfortable.SB 45.SBP still on 170's.No distress noted.Tolerating vent settings on AC mode. Turned and repositioned.All needs met.Report given to day shift RN for continuity of care to follow up with MD regarding elevated BP.
--- NOTE | 2020-02-06 07:15 | NUR ---
RN OPENING NOTE Received patient awake in bed calm and relacxed, no signs of distress. Has ETT 02/21 and on vent settings: AC 22 TV 500 FIO2 40% PEEP 5. Patient is AO X2. Tele monitor reading SB 48bpm. Has balderas catheter draining clear yellow urine by gravity. Bilateral soft wrist restraints in place. Noted with YOVANI PICC line, RAC and R Hand. Safety measures reinforced. Call light within reach. Bed on locked and lowest position. Will cont to monitor.
[2020-02-06] MEDS: CEFEPIME 2 GM in IV D5W 100 ML IV SCH ×2 (08:24→21:56)
[2020-02-06] MEDS: methylPREDNISolone SOD SUCC 40 MG/ML VIAL IV SCH ×3 (08:24→17:06)
[2020-02-06] MEDS: ENOXAPARIN SODIUM 40 MG/0.4 ML DISP.SYRIN SQ SCH (08:24)
--- NOTE | 2020-02-06 12:51 | NUR ---
OK TO START GT FEEDING PER DR. SEVERINO. WILL START GLUCERNA 1.2 @ 20ML/HR PATIENT IS DIABETIC. DIETARY CONSULT ORDERED.
--- NOTE | 2020-02-06 12:59 | NUR ---
SPOKE TO DR. NGUYỄN FOR BP MED PRN INFORMED PATIENT IS BRADYCARDIC 30-40S. DR. NGUYỄN ORDERED HYDRALAZINE 50MG TID.
[2020-02-06] MEDS: hydrALAZINE HCL 50 MG TABLET GT SCH ×2 (13:14→17:06)
[2020-02-06] MEDS ORDERED: GLUCERNA 1.2 1,000 ML BOTTLE NG SCH (13:30)
--- NOTE | 2020-02-06 15:31 | NUR ---
FOLLOWED UP WITH CXR RESULTS
--- NOTE | 2020-02-06 15:32 | NUR ---
UNABLE TO START FEEDING PER CENTRAL SUPPLY NO FEEDING PUMPS RIGHT NOW.
[2020-02-06] MEDS: INVESTIGATIONAL MED MISC 1 EA in IV NS 0.9% 250 ML IV SCH (18:22)
--- NOTE | 2020-02-06 18:33 | NUR ---
RN CLOSING NOTE Patient in bed no signs of distress. Still on ETT 02/21 vent settings as follows: AC 22 TV 500 FIO2 40% PEEP 5 tolerating well. appears calm and relaxed. Patient AO x1 non verbal. Tele monitor reading SB 50-60s. Tay gomez
--- NOTE | 2020-02-06 18:40 | NUR ---
RN CLOSING NOTE Patient in bed no signs of distress. Still on ETT 02/21 vent settings as follows: AC 22 TV 500 FIO2 40% PEEP 5 tolerating well. appears calm and relaxed. Patient AO x1 non verbal. Tele monitor reading SB 50-60s. Cross catheter drained 500ml the whole shift. Scrotum ultrasound normal, results placed in chart. Bilateral soft restraints on wrist checked for circulation all throughout the day. Waiting for feeding pump to be available. Will endorse. All due meds given. Cont on ATB no signs of adverse reaction to medications. CXR results in the chart as well. Safety measures reinforced. Vital signs maintained within normal limits. Call light within reach. Bed locked and on lowest position. Will endorse to special education itinerant teacher nurse for doc.
--- NOTE | 2020-02-06 19:40 | NUR ---
RN NOTES RECEIVED PATIENT WITH ETT 7 AND 22 CM AT LIPLINE WITH VENT SETTING AC 22 TV 500 FIO2 50% AND PEEP 8 TOLERATED WELL. PT ASLEEP AT THIS TIME NO SEDATION . SINUS ANNETTE ON TELE MONITOR HR 50'S. NGT INTACT, PATENCY CHECKED. HOB KEPT ELEVATED. IV SITE ON RAC G 20 AND RH INTACT WITH GOOD BLOOD RETURN. WITH MEANS CATH DRAINED VIA GRAVITY KEPT OFF FROM THE FLOOR. KEPT CLEAN AND DRY. TURN AND REPOSITION MUCH POSSIBLE. AND KEPT PT COMFORTABLE. WILL CONTINUE WITH POC.
[2020-02-06] MEDS ORDERED: AZITHROMYCIN 500 MG VIAL ONE (22:39)
[2020-02-06] MEDS: PROPOFOL 10MG/ML 50ML 50 ML IV PRN (22:59)
[2020-02-06] MEDS: AZITHROMYCIN 500 MG in IV D5W 250 ML IV SCH (23:20)
[2020-02-07] VITALS (32 sets, daily range): BP systolic 113–168; BP diastolic 45–131
[2020-02-07 04:40] LABS: BILIRUBIN,DIRECT 0.3 mg/dL (0.0-0.2); BILIRUBIN,TOTAL 0.7 mg/dL (0.2-1.0); TOTAL PROTEIN, SERUM 5.4 g/dL (6.4-8.2)
[2020-02-07] MEDS: BLOOD SUGAR DIAGNOSTIC 1 EACH STRIP IN SCH ×3 (05:57→17:41)
[2020-02-07] MEDS: INSULIN REGULAR, HUMAN 100 UNIT/ML 3 ML VIAL SQ PRN ×3 (05:58→17:34)
--- NOTE | 2020-02-07 06:54 | NUR ---
RN NOTES REMAINED ON DROPLET /CONTACT ISOLATION DUE TO COVID 19 AND E. COLI ON URINE. NO SIGNIFICANT CHANGES THROUGHOUT THE SHIFT. AFEBRILE. VSS WITHOUT PRESSORS. ETT AND VENT SETTING TOLERATED WELL. PATIENT IS FOLLOWING COMMANDS. NGT INTACT AND PATENT. IV SITE ON YOVANI PICC LINE INTACT, WITH CLEAN DRESSING. SB ON TELE MONITOR. LOWEST HR 48. NO APPARENT RESPIRATORY DISTRESS. DENIES PAIN. CONTINUE WITH ACCUCHECK , INSULIN PER SLIDING SCALE ADMINISTERED. KEPT PT CLEAN AND DRY. WILL CONTINUE POC.
--- NOTE | 2020-02-07 07:39 | NUR ---
HAND CLIPPER NOTES PATIENT IN BED WITH VENT SETTING ORDERED , REMAINED ON DROPLET /CONTACT ISOLATION DUE TO COVID 19 AND E. COLI ON URINE. . ETT AND VENT SETTING TOLERATED WELL. NGT INTACT AND PATENT. IV SITE ON YOVANI PICC LINE INTACT, WITH CLEAN DRESSING. SB ON TELE MONITOR. LOWEST HR 51. NO APPARENT RESPIRATORY DISTRESS AT THIS TIME DENIES PAIN. KEPT PT CLEAN AND DRY. WILL CONTINUE POC. WITH MEANS CATH TO GRAVITY RT UPPER ARM PICC LINE IN PLACE , BED IN LOWEST AND LOCKED POSITION
[2020-02-07] MEDS: CEFEPIME 2 GM in IV D5W 100 ML IV SCH ×2 (08:13→21:07)
[2020-02-07] MEDS: methylPREDNISolone SOD SUCC 40 MG/ML VIAL IV SCH ×3 (08:15→16:01)
[2020-02-07] MEDS: hydrALAZINE HCL 50 MG TABLET GT SCH ×3 (08:15→16:02)
[2020-02-07] MEDS: ENOXAPARIN SODIUM 40 MG/0.4 ML DISP.SYRIN SQ SCH (08:17)
--- NOTE | 2020-02-07 09:13 | NUR ---
DEICER TESTER NOTE PER DR GRANT AND RT PATIENT ON SIMV SETTING,TOLERATED WELL, SAT 95%
[2020-02-07 10:11] LABS: ABG BASE EXCESS -2.9 mmol/L; ABG OXYGEN SATURATION 97.8 % (92.0-98.5); ABG PCO2 26.9 mmHg (35.0-45.0); ABG PO2 101.4 mmHg (75.0-100.0); AaDO2 152.9 mmHg; COHb 0.5 % (0.5-1.5); MetHb 0.1 % (0.0-1.5); O2Hb 97.2 % (94.0-97.0); SITE, ABG Right Radial
--- NOTE | 2020-02-07 10:32 | NUR ---
SOFTWARE TEST SPECIALIST NOTE ABG DONE DR LOREDO AWARE OF RESULT. WILL BE EXTUBATED BY RT , WILL F\U
--- NOTE | 2020-02-07 10:45 | NUR ---
CARE TRANSITIONS NURSE NOTE EXTUBATED ORDERED, PLACED O 4L OF O2 NC, SAT 94% AT THIS TIME, WILL MONITOR
--- NOTE | 2020-02-07 12:42 | NUR ---
agricultural plow operator note seen by dr chidi Tavares notified that platelets 111 ,ok to give Lovenox also aware that scrotum is swollen, keep elevated ,no new order given at this time
--- NOTE | 2020-02-07 15:00 | NUR ---
CERTIFIED ENERGY MANAGER NOTE CONT ON NG TUBE FEEDING ORDERED , PLACEMENT CHECKED BY AUSCULTATION , NOTED RESIDUAL 10 ML ,KEEP HOB ELEVATED AT ALL TIME
[2020-02-07] MEDS: INVESTIGATIONAL MED MISC 1 EA in IV NS 0.9% 250 ML IV SCH (17:43)
--- NOTE | 2020-02-07 18:52 | NUR ---
ELECTRICIAN CONSTRUCTOR SUPERVISOR NOTE CONT ON 4L NC ,SAT 96% ,UNABLE TO REMOVE SOFT RESTRAIN ,PATENT AT RISK TO REMOVE ALL LINES , CONT ON N G TUBE FEEDING TOLERATED, KEEP HOB ELEVATED AT ALL TIME , BP125/78 WILL MONITOR, BED IN LOWEST AND LOCKED POSITION , CALL LIGHT WITHIN REACH
--- NOTE | 2020-02-07 19:20 | NUR ---
RN NOTES RECEIVED PATIENT AWAKE ON BED WITH O2 @ 4LPM VIA NC SATURATION 97% , NO RESPIRATORY DISTRESS. PATIENT SMILING AND WAVING HIS HANDS. DROPLET /CONTACT ISOLATION PRECAUTION STRICTLY OBSERVED DUE TO + COVID 19. SINUS ANNETTE ON TELE MONITOR HR 58. NGT INTACT WITH FEEDING OF GLUCERNA 1.2 @ 20 ML/HR INTACT, PATENCY CHECKED. HOB KEPT ELEVATED. IV SITE ON RAC G 20, RH, AND YOVANI PICC LINE ARE INTACT WITH GOOD BLOOD RETURN. PATIENT HAS MEANS CATH DRAINED VIA GRAVITY WITH YELLOW CLEAR COLOR URINE, KEPT BAG OFF FROM THE FLOOR. KEPT CLEAN AND DRY. TURN AND REPOSITION MUCH POSSIBLE. AND KEPT PT COMFORTABLE. WILL CONTINUE WITH POC.
[2020-02-07] MEDS: AZITHROMYCIN 250 MG TABLET GT SCH (23:09)
[2020-02-08] VITALS (29 sets, daily range): BP systolic 96–163; BP diastolic 43–98
[2020-02-08] MEDS: BLOOD SUGAR DIAGNOSTIC 1 EACH STRIP IN SCH ×5 (00:59→23:52)
[2020-02-08] MEDS: INSULIN REGULAR, HUMAN 100 UNIT/ML 3 ML VIAL SQ PRN ×5 (00:59→23:56)
[2020-02-08 04:22] LABS: BASOPHILS % (AUTO) 0.4 % (0.0-2.0); HEMATOCRIT 42 % (39-51); HEMOGLOBIN 14.2 g/dL (13.5-17.5); LYMPHOCYTES # (AUTO) 0.4 /CMM (0.8-4.8); LYMPHOCYTES % (AUTO) 7.3 % (20.0-44.0); MEAN CORPUSCULAR HGB CONC 34 g/dl (31.0-36.0); MEAN CORPUSCULAR VOLUME 101 fL (80-96); MONOCYTES # (AUTO) 0.6 /CMM (0.1-1.30); MONOCYTES % (AUTO) 11.5 % (2.0-12.0); NEUTROPHILS % (AUTO) 80.8 % (43.0-81.0); PLATELET COUNT (AUTO) 81 /CMM (150-450); RED BLOOD CELL COUNT(AUTO) 4.21 MIL/uL (4.5-6.0); WHITE BLOOD COUNT (AUTO) 4.9 K/uL (4.3-11.0)
[2020-02-08 04:36] LABS: BILIRUBIN,DIRECT 0.3 mg/dL (0.0-0.2); BILIRUBIN,TOTAL 0.7 mg/dL (0.2-1.0); TOTAL PROTEIN, SERUM 5.4 g/dL (6.4-8.2)
[2020-02-08 04:38] LABS: CALCIUM, SERUM 7.8 mg/dL (8.5-10.1); MAGNESIUM 2.7 mg/dL (1.8-2.4); PHOSPHORUS 2.6 mg/dL (2.5-4.9); POTASSIUM 3.9 mmol/L (3.5-5.1)
[2020-02-08 05:14] LABS: LYMPHOCYTES % (MANUAL) 6 % (16-48); MONOCYTES % (MANUAL) 7 % (0-11.0); NEUTROPHILS % (MANUAL) 87 (42-76)
--- NOTE | 2020-02-08 07:00 | NUR ---
RN NOTES PATIENT REMAINED STABLE ON O2 4LPM VIA NC NO ACUTE RESPIRATORY DISTRESS. SB ON TELE MONITOR. LOWEST HR 45 TOLERATED WELL WITHOUT CHEST PAIN, NO N/V. PATIENT REQUESTED TO HAVE WATER EDUCATED AND COMPLIANT. RESTRAINT REMOVE . NO SIGNIFICANT CHANGES THROUGHOUT THE SHIT. ENDORSED CONTINUITY OF CARE TO AM NURSE.
--- NOTE | 2020-02-08 07:30 | NUR ---
RN OPENING NOTES RECEIVED PATIENT RESTING IN BED. A/O X2, S/P EXTUBATION ON 02/07/20. PATIENT IS ON OXYGEN 4L VIA NC, TOLERATING WELL, NO SIGNS OF RESPIRATORY DISTRESS NOTED, O2 SATURATION AT 98%. ON TELE MONITOR WITH SB NOTED, HR AT 45 MD IS AWARE. PER REPORT, HR DROPS TO LOW 38BPM. MEANS CATHETER IS INTACT, PATENT, AND DRAINING URINE. FEEDING IS RUNNING AT 20ML/HR. YOVANI PICC LINE IS INTACT, PATENT, AND FLUSHED WELL. NO SIGNS OF INFILTRATION NOTED. IV ON RIGHT HAND, INTACT, PATENT, AND FLUSHED WELL. PATIENT SAFETY MAINTAINED, CALL LIGHT WITHIN REACH, WILL CONTINUE TO MONITOR CLOSELY.
[2020-02-08] MEDS: hydrALAZINE HCL 50 MG TABLET GT SCH ×3 (08:10→17:03)
[2020-02-08] MEDS: methylPREDNISolone SOD SUCC 40 MG/ML VIAL IV SCH ×3 (08:11→17:03)
[2020-02-08] MEDS: CEFEPIME 2 GM in IV D5W 100 ML IV SCH ×2 (08:11→21:25)
[2020-02-08] MEDS: ENOXAPARIN SODIUM 40 MG/0.4 ML DISP.SYRIN SQ SCH (08:14)
--- NOTE | 2020-02-08 19:16 | NUR ---
RN NOTE NO ACUTE CHANGES TO PATIENT CONDITION DURING MY SHIFT. REMAINED IN ICU DUE TO CLOSER MONITORING OF O2 SATURATION. PATIENT WAS DESATURATING DURING THE DAY TO LOW 90S, MD WANTED TO KEEP ICU FOR CLOSER OBSERVATION. CURRENTLY SATURATING AT 97% NO SIGNS OF RESPIRATORY DISTRESS NOTED. SAFETY MAINTAINED, CALL LIGHT WITHIN REACH, ENDORSED TO PM NURSE FOR CONTINUITY OF CARE.
--- NOTE | 2020-02-08 19:45 | NUR ---
ICU/OIL WELL PERFORATOR OPERATOR REPORT RECEIVED FROM THE TO DAY NURSE. SEE FLOWSHEET FOR ASSESSMENT, SKIN ISSUES ARE ADDRESSED ON FLOWSHEET ALONG WITH INTERVENTION TO EACH. PT ALERT X 1-2, BENINESE SPEAKING ONLY. PT IS CURRENTLY WITH 5 LITERS N/C WITH SATURATION AT 90'S%. WILL MONITOR THIS PT AND HIS SATURATION. ASST. PT WITH TURNING AND REPOSITIONING FOR COMFORT AND CARE. NO ACUTE DISTRESS SEEN AT THIS TIME, WILL CONTINUE TO MONITOR THIS PT.
--- NOTE | 2020-02-08 22:10 | NUR ---
ICU/BITE BLOCK MAKER PT WAS PROVIDED ORAL CARE AT THIS TIME. PT TOLERATED THIS WELL, REMAINS ON 5 LITERS N/C WITH SATURATION AT 93%. PT WAS TURNED AND REPOSITIONED FOR COMFORT AND CARE. WILL CONTINUE TO MONITOR THIS PT
[2020-02-08] MEDS: AZITHROMYCIN 250 MG TABLET GT SCH (23:27)
[2020-02-09] VITALS (25 sets, daily range): BP systolic 104–155; BP diastolic 44–81
--- NOTE | 2020-02-09 00:15 | NUR ---
ICU/DIGITAL COMPUTER SYSTEMS ANALYST MIDNIGHT BLOOD SUGAR IS 284, THIS WAS COVERED WITH MODERATE SLIDING SCALE ORDERED FOR MD. ALSO AT THIS TIME CHANGED OVER SLIDING SCALE G/TUBE FEEDING TO ACHS DUE TO PT DOWN ON A PUREE DIET WITH THICKENED LIQUIDS.
[2020-02-09] MEDS ORDERED: DEXTROSE 50%-WATER 50 ML DISP.SYRIN IV PRN (00:30)
[2020-02-09 04:12] LABS: BASOPHILS % (AUTO) 0.2 % (0.0-2.0); HEMATOCRIT 42 % (39-51); HEMOGLOBIN 14.2 g/dL (13.5-17.5); LYMPHOCYTES # (AUTO) 0.3 /CMM (0.8-4.8); LYMPHOCYTES % (AUTO) 7.3 % (20.0-44.0); MEAN CORPUSCULAR HGB CONC 34 g/dl (31.0-36.0); MEAN CORPUSCULAR VOLUME 100 fL (80-96); MONOCYTES # (AUTO) 0.4 /CMM (0.1-1.30); MONOCYTES % (AUTO) 9.1 % (2.0-12.0); NEUTROPHILS # (AUTO) 3.9 /CMM (1.8-8.9); NEUTROPHILS % (AUTO) 83.4 % (43.0-81.0); PLATELET COUNT (AUTO) 89 /CMM (150-450); RED BLOOD CELL COUNT(AUTO) 4.19 MIL/uL (4.5-6.0); WHITE BLOOD COUNT (AUTO) 4.7 K/uL (4.3-11.0)
[2020-02-09 04:28] LABS: CALCIUM, SERUM 7.7 mg/dL (8.5-10.1); CREATININE 0.9 mg/dL (0.6-1.3); MAGNESIUM 2.5 mg/dL (1.8-2.4); PHOSPHORUS 2.7 mg/dL (2.5-4.9); POTASSIUM 3.9 mmol/L (3.5-5.1)
[2020-02-09 05:10] LABS: LYMPHOCYTES % (MANUAL) 4 % (16-48); MONOCYTES % (MANUAL) 6 % (0-11.0); NEUTROPHILS % (MANUAL) 90 (42-76)
[2020-02-09] MEDS: BLOOD SUGAR DIAGNOSTIC 1 EACH STRIP VI SCH ×4 (07:52→21:44)
[2020-02-09] MEDS: *INSULIN REGULAR(HUMULIN R)HUM 100 UNIT/ML VIAL SQ PRN ×4 (07:54→21:46)
[2020-02-09] MEDS: hydrALAZINE HCL 50 MG TABLET GT SCH ×3 (08:07→17:01)
[2020-02-09] MEDS: CEFEPIME 2 GM in IV D5W 100 ML IV SCH (08:07)
[2020-02-09] MEDS: methylPREDNISolone SOD SUCC 40 MG/ML VIAL IV SCH ×3 (08:08→17:01)
[2020-02-09 08:35] LABS: ABG BASE EXCESS -3.1 mmol/L; ABG OXYGEN SATURATION 88.4 % (92.0-98.5); ABG PCO2 25.3 mmHg (35.0-45.0); ABG PH 7.482 (7.350-7.450); AaDO2 232.9 mmHg; COHb 0.7 % (0.5-1.5); MetHb 0.3 % (0.0-1.5); O2Hb 87.5 % (94.0-97.0); SITE, ABG Left Radial; VENT MODE, BG N/C 6LPM
--- NOTE | 2020-02-09 18:20 | NUR ---
ICU/RN: Pt was received on a NC at 5 LPM but desaturating everytime the pt removes his NC in spite of talking to him about the importance of keeping it on. ABG with pO2 of 50 was done and was ordered to switch him to mask at 10 LPM. Tolerating well but desaturating when eating his meals, switched to NC only while eating. On high risk of VTE, ordered DVT pumps, contraindicated with chemical prophylaxis due to low platelets. Convalescent plasma still pending. Tolerating pureed diet well, good appetite noted. PICC line and balderas are patent and intact. Had a non eventful day today, will give report to car shifter RN.
[2020-02-10] VITALS (24 sets, daily range): BP systolic 97–150; BP diastolic 53–79
[2020-02-10 04:13] LABS: BASOPHILS % (AUTO) 0.2 % (0.0-2.0); EOSINOPHILS % (AUTO) 0.1 % (0.0-6.0); HEMATOCRIT 40 % (39-51); HEMOGLOBIN 13.4 g/dL (13.5-17.5); LYMPHOCYTES # (AUTO) 0.3 /CMM (0.8-4.8); LYMPHOCYTES % (AUTO) 7.5 % (20.0-44.0); MEAN CORPUSCULAR HGB CONC 33 g/dl (31.0-36.0); MEAN CORPUSCULAR VOLUME 100 fL (80-96); MONOCYTES # (AUTO) 0.3 /CMM (0.1-1.30); MONOCYTES % (AUTO) 6.3 % (2.0-12.0); NEUTROPHILS # (AUTO) 3.6 /CMM (1.8-8.9); NEUTROPHILS % (AUTO) 85.9 % (43.0-81.0); PLATELET COUNT (AUTO) 74 /CMM (150-450); RED BLOOD CELL COUNT(AUTO) 4.03 MIL/uL (4.5-6.0); WHITE BLOOD COUNT (AUTO) 4.2 K/uL (4.3-11.0)
[2020-02-10 04:34] LABS: CALCIUM, SERUM 7.5 mg/dL (8.5-10.1); CARBON DIOXIDE 24 mmol/L (21-32); CHLORIDE 110 mmol/L (98-107); CREATININE 0.9 mg/dL (0.6-1.3); GLUCOSE 233 mg/dL (74-106); MAGNESIUM 2.5 mg/dL (1.8-2.4); PHOSPHORUS 3.2 mg/dL (2.5-4.9); POTASSIUM 4.1 mmol/L (3.5-5.1); SODIUM SERUM 141 mmol/L (136-145); UREA NITROGEN, BLOOD 35 mg/dL (7-18)
[2020-02-10 05:04] LABS: LYMPHOCYTES % (MANUAL) 4 % (16-48); MONOCYTES % (MANUAL) 4 % (0-11.0); NEUTROPHILS % (MANUAL) 92 (42-76)
--- NOTE | 2020-02-10 07:45 | NUR ---
ICU/RN INITIAL NOTES,AM RECEIVED REPORT FROM NIGHT NURSE. PT ALERT, AWAKE, FOLLOW COMMANDS. ON 10 LITERS SIMPLE MASK, MAINTAINING 02 >90%. SINUS ANNETTE ON TELE. MEANS CATH IN PLACE, DRAINING. RIGHT UPPER ARM PICC PATENT AND INTACT, NO S/S OF INFECTION OR INFILTRATION NOTED. PT ON PUREE DIET, A FEEDER. ALL NEEDS WILL BE ATTENDED TO, SAFETY MEASURES TAKEN, BED IN LOW POSITION, SIDE RAILS UP, CALL LIGHT WITHIN REACH. WILL CONTINUE TO MONITOR AND ASSESS.
[2020-02-10] MEDS: methylPREDNISolone SOD SUCC 40 MG/ML VIAL IV SCH ×3 (08:24→17:36)
[2020-02-10] MEDS: hydrALAZINE HCL 50 MG TABLET GT SCH ×3 (08:25→17:36)
[2020-02-10] MEDS: BLOOD SUGAR DIAGNOSTIC 1 EACH STRIP VI SCH ×4 (08:26→21:54)
[2020-02-10] MEDS: *INSULIN REGULAR(HUMULIN R)HUM 100 UNIT/ML VIAL SQ PRN ×4 (08:44→21:55)
--- NOTE | 2020-02-10 09:15 | NUR ---
ICU/RN: PT SWITCHED SIMPLE MASK TO NASAL CANULA 6LITERS. PT DID NOT TOLERATE, DESATURATING TO 80S. PLACED BACK IN SIMPLE MASK 8LITERS, TOLERATING WELL.
--- NOTE | 2020-02-10 11:40 | NUR ---
ICU/RN: REPEAT SWALLOW EVAL DONE, ORDERS CHANGED,
--- NOTE | 2020-02-10 18:59 | NUR ---
ICU/RN ENDING NOTES,AM REPORT WILL BE ENDORSED TO NIGHT NURSE FOR BARBARA. PT ALERT, AWAKE, FOLLOWS COMMANDS. ON SIMPLE MASK 8LITERS, TOLERATING WELL NO DISTRESS. ALL NEEDS ATTENDED TO, SAFETY MEASURES TAKEN, BED IN LOW POSITION, SIDE RAILS UP, CALL LIGHT WITHIN REACH.
--- NOTE | 2020-02-10 19:05 | NUR ---
RESIDENT INTERN NOTE RECEIVED PATIENT IN BED RESTING, WATCHING TV. A&O X3. ABLE TO MAKE NEEDS KNOWN IN [place]. BREATHING IS EVEN AND NON-LABORED. NO SOB NOTED AT THIS TIME. ON O2 8L VIA SIMPLE FACE MASK AND TOLERATING WELL. NOTED PATIENT WITH BRADYCARDIA VIA BEDSIDE MONITOR, HR IS 45 BPM AT THIS TIME. ON PUREED DIET. ON ISOLATION FOR COVID +, 2ND RESWAB IS PENDING AT THIS TIME. IV SITE ON YOVANI IS CLEAN, DRY, AND PATENT. ON MEANS CATH, URINE IS MILDLY CLOUDY AND YELLOW IN COLOR. NOTED SWELLING ON SCROTUM. IN NO APPARENT DISTRESS NOTED AT THIS TIME. CALL LIGHT IS WITHIN EASY REACH. WILL CONTINUE TO MONITOR.
[2020-02-11] VITALS (20 sets, daily range): BP systolic 102–144; BP diastolic 46–78
--- NOTE | 2020-02-11 00:05 | NUR ---
BLOW MOLD OPERATOR NOTE NOTED PATIENT WITH LARGE AMOUNT OF BM AROUND THIS TIME. BED BATH PROVIDED AND TOLERATED WELL. ALL WOUND CARE RENDERED. WILL CONTINUE TO MONITOR. Addendum: 02/11/20 at 0400 by MARLYN PARKER RN WRONG PATIENT
--- NOTE | 2020-02-11 03:00 | NUR ---
AUTOPSY ASSISTANT NOTE PATIENT REFUSED TO HAVE A BED BATH AND BE CLEANED AT THIS TIME. PATIENT IS A&O X3. IN NO APPARENT DISTRESS NOTED, NO COMPLAINTS OF PAIN. WILL CONTINUE TO MONITOR.
[2020-02-11 04:51] LABS: CALCIUM, SERUM 7.7 mg/dL (8.5-10.1); CREATININE 0.8 mg/dL (0.6-1.3); MAGNESIUM 2.5 mg/dL (1.8-2.4); POTASSIUM 4.3 mmol/L (3.5-5.1)
[2020-02-11 04:54] LABS: BASOPHILS % (AUTO) 0.1 % (0.0-2.0); HEMATOCRIT 43 % (39-51); HEMOGLOBIN 14.2 g/dL (13.5-17.5); LYMPHOCYTES # (AUTO) 0.4 /CMM (0.8-4.8); LYMPHOCYTES % (AUTO) 7.9 % (20.0-44.0); MEAN CORPUSCULAR HGB CONC 33 g/dl (31.0-36.0); MEAN CORPUSCULAR VOLUME 100 fL (80-96); MONOCYTES # (AUTO) 0.4 /CMM (0.1-1.30); MONOCYTES % (AUTO) 7.3 % (2.0-12.0); NEUTROPHILS # (AUTO) 4.8 /CMM (1.8-8.9); NEUTROPHILS % (AUTO) 84.7 % (43.0-81.0); PLATELET COUNT (AUTO) 65 /CMM (150-450); RED BLOOD CELL COUNT(AUTO) 4.35 MIL/uL (4.5-6.0); WHITE BLOOD COUNT (AUTO) 5.7 K/uL (4.3-11.0)
[2020-02-11 05:35] LABS: C-REACTIVE PROTEIN 1.1 mg/dL (0.0-0.9)
[2020-02-11 05:42] LABS: LYMPHOCYTES % (MANUAL) 9 % (16-48); MONOCYTES % (MANUAL) 10 % (0-11.0); NEUTROPHILS % (MANUAL) 81 (42-76)
--- NOTE | 2020-02-11 06:52 | NUR ---
HELPER ELECTRICAL NOTE PATIENT REMAINED STABLE THROUGHOUT THE NIGHT. NO SIGNIFICANT CHANGES NOTED. ALL NEEDS ATTENDED AND MET. REPOSITIONED Q2H. PATIENT REFUSED BED BATH. WILL ENDORSE TO AM SHIFT RN FOR CONTINUATION OF CARE.
[2020-02-11] MEDS: BLOOD SUGAR DIAGNOSTIC 1 EACH STRIP VI SCH ×4 (08:40→22:53)
[2020-02-11] MEDS: hydrALAZINE HCL 50 MG TABLET GT SCH ×3 (08:40→16:28)
[2020-02-11] MEDS: methylPREDNISolone SOD SUCC 40 MG/ML VIAL IV SCH ×3 (08:40→16:30)
[2020-02-11] MEDS: *INSULIN REGULAR(HUMULIN R)HUM 100 UNIT/ML VIAL SQ PRN ×4 (08:41→23:21)
[2020-02-11] MEDS: DOCUSATE SODIUM 100 MG CAPSULE PO SCH ×2 (10:18→16:30)
--- NOTE | 2020-02-11 17:47 | NUR ---
ICU/RN Pt received on 8LPM mask, was placed on NC while eating and was tolerating 5 LPM very well and kept on all day. Afebrile, have a very good appetite, 100% consumed on all meals. HR 40's very relaxed or sleeping but usually on 60's when awake and alert. Had a non eventful day except when granddaughter called Estelle and stated that pt's recently. Requested not to tell the patient yet but family is planning to take patient AMA on Thursday or Thursday so he can attend the viewing before cremation on Tuesday 02/13. Will be downgraded today to tele/[facility]. Will give report to GABY RN.
--- NOTE | 2020-02-11 18:28 | NUR ---
dr. ellington notified patient has two negative covid results per md will keep in [facility] for now and will reeval in am if ok to d/c iso.
--- NOTE | 2020-02-11 19:30 | NUR ---
RN OPENING NOTES client is resting in bed A/O x2. No SOB, No s/s of distress. easily arousal and follows simple commands. VS WNL at this time, but it was reported from previous nurse that the client has bradycardic episodes when sleeping. The client has YOVANI peripheral IV, flushing well. The client has enlarged scrotum, see ultrasound for results. F/C draining well. No s/s of pain, client denies pain. Will continue to monitor the client. All safety mechanisms in place.
[2020-02-12] VITALS (8 sets, daily range): BP systolic 113–143; BP diastolic 54–71
--- NOTE | 2020-02-12 06:41 | NUR ---
RN CLOSING NOTES No change of condition during the shift. client is resting in bed A/O x2. No SOB, No s/s of distress. easily arousal and follows simple commands. VS WNL at this time, continues to have bradycardic episodes when sleeping. The client has YOVANI picc, flushing well. The client has enlarged scrotum, see ultrasound for results. F/C draining well. No s/s of pain, client denies pain. All safety mechanisms in place. Will endorse the incoming shift.
--- NOTE | 2020-02-12 07:05 | NUR ---
RN NOTES RECEIVED PT ON BED, A/Ox2, ROMANIAN SPEAKING , FOLLOWS SIMPLE COMMANDS , ON TELE SB HR IN 40'S , NO DISTRESS NOTED, MEANS DRINING TO GRAVITY, R UPPER ARM PICC LINE SITE CLEAN,DRY AND INTACT, SR UP x3, CALL LIGHT WITHIN EASY REACH, BED LOCKED AND IN LOWEST POSITION, CONTINUE TO MONITOR.
[2020-02-12 08:08] LABS: BASOPHILS % (AUTO) 0.1 % (0.0-2.0); HEMATOCRIT 43 % (39-51); HEMOGLOBIN 14.3 g/dL (13.5-17.5); LYMPHOCYTES # (AUTO) 0.6 /CMM (0.8-4.8); LYMPHOCYTES % (AUTO) 8.4 % (20.0-44.0); MEAN CORPUSCULAR HGB CONC 33 g/dl (31.0-36.0); MEAN CORPUSCULAR VOLUME 100 fL (80-96); MONOCYTES # (AUTO) 0.6 /CMM (0.1-1.30); MONOCYTES % (AUTO) 8.9 % (2.0-12.0); NEUTROPHILS # (AUTO) 5.9 /CMM (1.8-8.9); NEUTROPHILS % (AUTO) 82.6 % (43.0-81.0); PLATELET COUNT (AUTO) 59 /CMM (150-450); RED BLOOD CELL COUNT(AUTO) 4.34 MIL/uL (4.5-6.0); WHITE BLOOD COUNT (AUTO) 7.1 K/uL (4.3-11.0)
[2020-02-12 08:18] LABS: CALCIUM, SERUM 7.7 mg/dL (8.5-10.1); CREATININE 0.8 mg/dL (0.6-1.3); MAGNESIUM 2.6 mg/dL (1.8-2.4); PHOSPHORUS 2.9 mg/dL (2.5-4.9); POTASSIUM 4.2 mmol/L (3.5-5.1)
[2020-02-12] MEDS: methylPREDNISolone SOD SUCC 40 MG/ML VIAL IV SCH ×3 (08:28→16:36)
[2020-02-12] MEDS: hydrALAZINE HCL 50 MG TABLET GT SCH ×3 (08:29→16:36)
[2020-02-12] MEDS: BLOOD SUGAR DIAGNOSTIC 1 EACH STRIP VI SCH ×4 (08:31→21:26)
[2020-02-12] MEDS: INSULIN REGULAR, HUMAN 100 UNIT/ML 3 ML VIAL SQ PRN ×2 (08:31→12:34)
[2020-02-12] MEDS: DOCUSATE SODIUM 100 MG CAPSULE PO SCH ×2 (08:32→16:36)
--- NOTE | 2020-02-12 11:01 | NUR ---
RN NOTES PT STABLE, REPORT GIVEN TO IFTIKHAR MCKOY FOR CONTINUITY OF CARE .
--- NOTE | 2020-02-12 11:28 | NUR ---
RN NOTES RECEIVED REPORT FROM TEO MCKOY FOR BARBARA
[2020-02-12] MEDS: *INSULIN REGULAR(HUMULIN R)HUM 100 UNIT/ML VIAL SQ PRN ×2 (17:58→21:33)
--- NOTE | 2020-02-12 19:20 | NUR ---
RN CLOSING NOTES PT IS RESTING COMFORTABLY IN BED, ENDORSED TO NIGHTSHIFT RN FOR BARBARA.
--- NOTE | 2020-02-12 19:30 | NUR ---
RN CLOSING NOTES Client is resting in bed A/O x2. No SOB, No s/s of distress. easily arousal and follows simple commands. VS WNL at this time, continues to have bradycardic episodes when sleeping. The client has YOVANI picc, flushing well. The client has enlarged scrotum, see ultrasound for results. F/C draining well. No s/s of pain, client denies pain. All safety mechanisms in place. A transfer order is in place to go to [place], will transfer the client as soon as it is possible.
--- NOTE | 2020-02-12 20:30 | NUR ---
TRANSFER NOTES The client has been transfer to [place] in stable condition for continuity of care.
--- NOTE | 2020-02-12 20:38 | NUR ---
MS/STEAM TABLE ATTENDANT NOTES: RECEIVED PT REPORT FROM GABY CHESTER RN. PT WILL BE TRANSFERRED TO ROOM 207-1.
--- NOTE | 2020-02-12 20:50 | NUR ---
MS/RN OPENING TRANSFER NOTES: PT ARRIVED AT THE UNIT AT 2049 VIA GURNEY. PT IS A TRANSFER FROM [facility]. NEGATIVE FOR COVID. IN STABLE CONDITION. A/OX2. TAMAZIGHT SPEAKING. NO C/O PAIN AT THIS TIME. NO S/S OF DISTRESS, BREATHING EVEN AND UNLABORED. SATURATING AT 95% ON 2L OF OXYGEN VIA NC. ALL BELONGINGS CHECKED AND PLACED IN THE ROOM. IV SITE ON THE RIGHT UA PICCLINE. SKIN INTACT. HAS SCROTUM SWELLING NOTED, PRESENT SINCE ADMISSION PER [facility] NURSE NEMO AND [facility] APARTMENT HOUSE MANAGER. CURRENTLY ON BED REST. ORIENTED PT TO STAFF AND UNIT. CALL LIGHT WITHIN REACH. SAFETY MEASURES INITIATED. BED IN LOW, LOCKED POSITION WITH SR UP X2. WILL CONTINUE TO MONITOR ACCORDINGLY.
--- NOTE | 2020-02-12 22:20 | NUR ---
MS/RN NOTES: ACCUCHECK FOR HS IS 326. 8 UNITS REG INSULIN ADMINISTERED. GIVEN APPLE SAUCE. WILL CONTINUE TO MONITOR.
--- NOTE | 2020-02-13 06:35 | NUR ---
MS/RN NOTES: ACCUCHECK FOR AC IS 143. 2 UNITS REG INSULIN ADMINISTERED. GIVEN APPLE SAUCE. WILL CONTINUE TO MONITOR.
[2020-02-13] MEDS: BLOOD SUGAR DIAGNOSTIC 1 EACH STRIP VI SCH ×4 (06:42→21:59)
[2020-02-13] MEDS: INSULIN REGULAR, HUMAN 100 UNIT/ML 3 ML VIAL SQ PRN ×3 (06:44→17:02)
--- NOTE | 2020-02-13 06:51 | NUR ---
MS/RN CLOSING NOTES: PT REMAINS IN STABLE CONDITION, RESTING IN BED COMFORTABLY. SLEPT WELL. REMAINS A/OX2. INDIAN SPEAKING. NO C/O PAIN AT THIS TIME. NO S/S OF DISTRESS, BREATHING EVEN AND UNLABORED. SATURATING AT 95% ON 2L OF OXYGEN VIA NC. ALL NEEDS MET AND RENDERED. PATIENT BED ALARM IS ON. KEPT CLEAN AND DRY, COMFORTABLE AND WARM THROUGH OUT THE SHIFT. SAFETY PRECAUTIONS KEPT IN PLACE. PATIENT BED IS LOCKED AND IN LOWEST POSITION. CALL LIGHT WITHIN REACH. WILL ENDORSE TO AM SHIFT FOR BARBARA.
[2020-02-13 06:56] LABS: HEMATOCRIT 42 % (39-51); HEMOGLOBIN 13.8 g/dL (13.5-17.5); LYMPHOCYTES # (AUTO) 0.6 /CMM (0.8-4.8); LYMPHOCYTES % (AUTO) 8.5 % (20.0-44.0); MEAN CORPUSCULAR HGB CONC 33 g/dl (31.0-36.0); MEAN CORPUSCULAR VOLUME 99 fL (80-96); MONOCYTES # (AUTO) 0.6 /CMM (0.1-1.30); MONOCYTES % (AUTO) 8.7 % (2.0-12.0); NEUTROPHILS # (AUTO) 5.4 /CMM (1.8-8.9); NEUTROPHILS % (AUTO) 82.8 % (43.0-81.0); PLATELET COUNT (AUTO) 53 /CMM (150-450); RED BLOOD CELL COUNT(AUTO) 4.24 MIL/uL (4.5-6.0); WHITE BLOOD COUNT (AUTO) 6.5 K/uL (4.3-11.0)
[2020-02-13 07:08] LABS: CALCIUM, SERUM 7.6 mg/dL (8.5-10.1); CREATININE 0.6 mg/dL (0.6-1.3); MAGNESIUM 2.5 mg/dL (1.8-2.4); PHOSPHORUS 2.7 mg/dL (2.5-4.9); POTASSIUM 4.4 mmol/L (3.5-5.1)
--- NOTE | 2020-02-13 07:28 | NUR ---
MS RN NOTES RECEIVED PT IN BED, ASLEEP, EASILY AROUSED, A/O X2, KYRGYZ SPEAKING. PT ON SUPPLEMENTARY OXYGEN 2L VIA NC, WITH NO ACUTE RESPIRATORY DISTRESS NOTED. PT DENIES ANY PAIN OR DISCOMFORT AT THIS TIME. PT DENIES ANY CONCERNS OR QUESTIONS WELL. YOVANI PICC LINE, FLUSHED WITH NS, INTACT AND OPERATIONAL. PT KEPT COMFORTABLE IN BED. CALL LIGHT KEPT WITHIN REACH. PT'S BED IN LOWEST, LOCKED POSITION WITH SR X3. WILL CONTINUE PLAN OF CARE.
[2020-02-13 08:00] VITALS: BP 135/74
[2020-02-13] MEDS: hydrALAZINE HCL 50 MG TABLET GT SCH ×3 (08:24→16:43)
[2020-02-13] MEDS: DOCUSATE SODIUM 100 MG CAPSULE PO SCH ×2 (08:24→16:43)
[2020-02-13] MEDS: methylPREDNISolone SOD SUCC 40 MG/ML VIAL IV SCH ×3 (08:24→16:42)
[2020-02-13 13:07] LABS: LYMPHOCYTES % (MANUAL) 3 % (16-48); MONOCYTES % (MANUAL) 9 % (0-11.0); NEUTROPHILS % (MANUAL) 88 (42-76)
--- NOTE | 2020-02-13 15:30 | NUR ---
MS RN NOTES RECEIVED CALL FROM GRAND DAUGHTER/SKINNY REGARDING REQUEST OF PT BEING DISCHARGE BY TOMORROW, DUE TO SCHEDULE OF PT'S ON THURSDAY. HOSPITALIST/TS MADE AWARE AND OKAY TO BE DISCHARGE TOMORROW PER FAMILY'S REQUEST AND ALSO WITH OXYGEN SUPPLEMENT AT HOME. WILL ENDORSE TO INCOMING NIGHT NURSE WELL.
[2020-02-13 16:00] VITALS: BP 129/71
--- NOTE | 2020-02-13 18:36 | NUR ---
MS RN NOTES PT INTERMITTENTLY DOZING OFF, EASILY AROUSED, A/O X2, NORTH KOREAN SPEAKING. PT ON SUPPLEMENTARY OXYGEN 2L VIA NC, WITH NO ACUTE RESPIRATORY DISTRESS NOTED. PT DENIES ANY PAIN OR DISCOMFORT AT THIS TIME. YOVANI PICC LINE, FLUSHED WITH NS, INTACT AND OPERATIONAL. PT KEPT COMFORTABLE IN BED. ALL NEEDS AND CARE ATTENDED. CALL LIGHT KEPT WITHIN REACH. PT'S BED IN LOWEST, LOCKED POSITION WITH SR X3. WILL ENDORSE TO INCOMING NIGHT NURSE FOR BARBARA.
--- NOTE | 2020-02-13 19:16 | NUR ---
patient is currently tolerating O2 2L/NC spo2 95%. repeat COVID-19 test are negative. Spoke with granddaughter Estelle [phone] family is requesting discharge to home tomorrow so patient can attend his . Spoke with bedside nurse requested to check room air O2 sat so home O2 can be arrange if needed.Left message to MD for PT eval order. Addendum: 02/13/20 at 7 by CECY RIVERA RN Amended: Links added.
--- NOTE | 2020-02-13 19:30 | NUR ---
MS/RN OPENING NOTES: RECEIVED PT IN BED, SLEEPING AT THIS TIME. EASILY AROUSED, A/O X2, SAMMARINESE SPEAKING. PT ON SUPPLEMENTARY OXYGEN 2L VIA NC, WITH NO ACUTE RESPIRATORY DISTRESS NOTED. PT DENIES ANY PAIN OR DISCOMFORT AT THIS TIME. PT DENIES ANY CONCERNS OR QUESTIONS WELL. YOVANI PICC LINE, FLUSHED WITH NS, INTACT AND OPERATIONAL. PT TO BE DC TOMORROW. PER FEDERICO JENNINGS, MONITOR HOW PATIENT IS TOLERATING ON ROOM AIR AND DOCUMENT. CALL LIGHT KEPT WITHIN REACH. PT'S BED IN LOWEST, LOCKED POSITION WITH SR X3. WILL CONTINUE PLAN OF CARE.
[2020-02-13 20:00] VITALS: BP 138/65
[2020-02-13] MEDS: *INSULIN REGULAR(HUMULIN R)HUM 100 UNIT/ML VIAL SQ PRN (22:02)
--- NOTE | 2020-02-13 23:00 | NUR ---
MS/RN NOTES: PLACED PT ON ROOM AIR, SATURATING AT 88%. PLACED BACK AT 2L OXYGEN VIA NC, SATURATING AT 93-95%. WILL COTNINUE TO MONITOR.
[2020-02-14] MEDS: BLOOD SUGAR DIAGNOSTIC 1 EACH STRIP VI SCH ×3 (06:37→16:54)
[2020-02-14] MEDS: INSULIN REGULAR, HUMAN 100 UNIT/ML 3 ML VIAL SQ PRN ×3 (06:40→17:09)
--- NOTE | 2020-02-14 07:18 | NUR ---
MS RN NOTES RECEIVED PT IN BED, ASLEEP, EASILY AROUSED, A/O X2, TELUGU SPEAKING. PT ON SUPPLEMENTARY OXYGEN 2L VIA NC, WITH NO ACUTE RESPIRATORY DISTRESS NOTED. PT DENIES ANY PAIN OR DISCOMFORT AT THIS TIME. PT DENIES ANY CONCERNS OR QUESTIONS WELL. YOVANI PICC LINE, FLUSHED WITH NS, INTACT AND OPERATIONAL. PT KEPT COMFORTABLE IN BED. CALL LIGHT KEPT WITHIN REACH. PT'S BED IN LOWEST, LOCKED POSITION WITH SR X3. WILL CONTINUE PLAN OF CARE.
--- NOTE | 2020-02-14 07:19 | NUR ---
MS/RN CLOSING NOTES: PT REMAINS IN STABLE CONDITION, RESTING IN BED COMFORTABLY. SLEPT WELL. REMAINS A/OX2. FINNISH SPEAKING. NO C/O PAIN AT THIS TIME. NO S/S OF DISTRESS, BREATHING EVEN AND UNLABORED. SATURATING AT 93% ON 2L OF OXYGEN VIA NC. WEANED OFF LAST NIGHT FROM 1L TO ROOM AIR. PATIENT SATURATED AT 88%. PLACED PT BACK TO 2L AGAIN VIA NC. ALL NEEDS MET AND RENDERED. PATIENT BED ALARM IS ON. KEPT CLEAN AND DRY, COMFORTABLE AND WARM THROUGH OUT THE SHIFT. SAFETY PRECAUTIONS KEPT IN PLACE. PATIENT BED IS LOCKED AND IN LOWEST POSITION. CALL LIGHT WITHIN REACH. WILL ENDORSE TO AM SHIFT FOR BARBARA.
[2020-02-14 07:20] LABS: BASOPHILS % (AUTO) 0.5 % (0.0-2.0); HEMATOCRIT 40 % (39-51); HEMOGLOBIN 13.3 g/dL (13.5-17.5); LYMPHOCYTES # (AUTO) 0.8 /CMM (0.8-4.8); LYMPHOCYTES % (AUTO) 11.1 % (20.0-44.0); MEAN CORPUSCULAR HGB CONC 33 g/dl (31.0-36.0); MEAN CORPUSCULAR VOLUME 100 fL (80-96); MONOCYTES # (AUTO) 0.5 /CMM (0.1-1.30); NEUTROPHILS # (AUTO) 5.5 /CMM (1.8-8.9); NEUTROPHILS % (AUTO) 80.4 % (43.0-81.0); RED BLOOD CELL COUNT(AUTO) 4.05 MIL/uL (4.5-6.0); WHITE BLOOD COUNT (AUTO) 6.8 K/uL (4.3-11.0)
[2020-02-14 07:32] LABS: PLATELET COUNT (AUTO) 46 /CMM (150-450)
--- NOTE | 2020-02-14 07:38 | NUR ---
MS RN NOTES RECEIVED CALL FROM LAB REGARDING PT'S PLT OF 46. WILL NOTIFY HOSPITALIST. WILL CONTINUE TO MONITOR.
[2020-02-14 07:40] LABS: CALCIUM, SERUM 7.4 mg/dL (8.5-10.1); CARBON DIOXIDE 27 mmol/L (21-32); CHLORIDE 105 mmol/L (98-107); CREATININE 0.7 mg/dL (0.6-1.3); GLUCOSE 161 mg/dL (74-106); MAGNESIUM 2.3 mg/dL (1.8-2.4); PHOSPHORUS 2.6 mg/dL (2.5-4.9); POTASSIUM 4.1 mmol/L (3.5-5.1); SODIUM SERUM 135 mmol/L (136-145); UREA NITROGEN, BLOOD 28 mg/dL (7-18)
[2020-02-14 08:00] VITALS: BP 143/74
[2020-02-14] MEDS: DOCUSATE SODIUM 100 MG CAPSULE PO SCH ×2 (09:00→16:40)
[2020-02-14] MEDS: hydrALAZINE HCL 50 MG TABLET GT SCH ×3 (09:00→16:40)
[2020-02-14] MEDS: methylPREDNISolone SOD SUCC 40 MG/ML VIAL IV SCH ×3 (09:00→16:39)
[2020-02-14 09:36] LABS: LYMPHOCYTES % (MANUAL) 10 % (16-48); MONOCYTES % (MANUAL) 3 % (0-11.0); MYELOCYTES % 1 % (0-0); NEUTROPHILS % (MANUAL) 86 (42-76)
--- NOTE | 2020-02-14 12:00 | NUR ---
MS RN NOTES RN SPOKE TO ANDRAE/SUMAN REGARDING ARRANGEMENT OF SUPPLEMENTARY OXYGEN AT HOME. PER ANDRAE/SUMAN SHE SPOKE TO GRANDDAUGHTER/SKINNY REGARDING ARRANGEMENT OF OXYGEN, AWAITING FOR INSURANCE CLEARANCE AND DELIVERY OF THE TANK HERE AND CONCENTRATOR AT HOME.
[2020-02-14] MEDS ORDERED: PRED5TAB48 PO (15:11)
[2020-02-14] MEDS ORDERED: HYDR-4077 GT (15:11)
[2020-02-14] MEDS ORDERED: DOCU-270 PO (15:11)
[2020-02-14] MEDS ORDERED: ALBU18HF2 IH (15:11)
[2020-02-14] MEDS ORDERED: PRED20TA PO (15:11)
[2020-02-14] MEDS ORDERED: ACET325T53 PO (15:11)
[2020-02-14 16:13] VITALS: BP 141/73
[2020-02-14 16:40] VITALS: BP 141/73
--- NOTE | 2020-02-14 17:40 | NUR ---
MS ASSEMBLER TRACTOR NOTES PT AWAKE, A/O X2, GREEK SPEAKING. PT ON SUPPLEMENTARY OXYGEN 2L VIA NC, WITH NO ACUTE RESPIRATORY DISTRESS NOTED. PT DENIES ANY PAIN OR DISCOMFORT AT THE TIME OF DISCHARGE. YOVANI PICC LINE, REMOVED WITH TIP INTACT. PT UNABLE TO SIGN DISCHARGE PAPERS AND INVENTORY LIST. ALL BELONGINGS WITH THE PT. MENTIONED TO SKINNY/GRAND DAUGHTER REGARDING DISCHARGE INSTRUCTIONS OVER THE PHONE, OFFERED TO CALL US BACK FOR ANY QUESTIONS OR CONCERNS. PT HAS A POTABLE TANK OF OXYGEN AND CONCENTRATOR IS DELIVERED AT HOME. [facility] INFORMATION PROVIDED TO SKINNY WELL. ALL NEEDS AND CARE ATTENDED. FC WAS REMOVED AROUND 3PM AND PT ABLE TO VOID. SKIN ASSESSED, PICTURE TAKEN AND FILED IN THE CHART. HOSPITALIST/SA AWARE OF DISCHARGE. PT'S VITALS STABLE. PT ESCORTED TO THE LOBBY VIA WHEELCHAIR AND UP TO THE CAR WITH 2 ASSIST. PT LEFT THE HOSPITAL AT 1730.
== END 2020-02-14 17:30 | disposition home or self-care (01) | DRG 870 ==
LOC: ER 21:35 → TELE1 23:43 → ICU 02-02 03:08 → TELE-TD 02-11 18:13 → MEDSG1 02-12 13:04 → MEDSG2 02-12 20:48
PROVIDERS: ADMIT Nurse Practitioner Acute Care
PROC: 5A1955Z Respiratory Ventilation, Greater than 96 Consecutive Hours (ICD-10-PCS; 2020-02-02)
PROC: 0BH17EZ Insertion of Endotracheal Airway into Trachea, Via Natural or Artificial Opening (ICD-10-PCS; 2020-02-02)
PROC: 02HV33Z Insertion of Infusion Device into Superior Vena Cava, Percutaneous Approach (ICD-10-PCS; principal; 2020-02-03)
PROC: B548ZZA Ultrasonography of Superior Vena Cava, Guidance (ICD-10-PCS; 2020-02-03)
DX: A41.89 Other specified sepsis (principal); J96.01 Acute respiratory failure with hypoxia; U07.1 COVID-19; J12.89 Other viral pneumonia; N17.0 Acute kidney failure with tubular necrosis; J15.6 Pneumonia due to other Gram-negative bacteria; G93.41 Metabolic encephalopathy; R65.21 Severe sepsis with septic shock; E44.0 Moderate protein-calorie malnutrition; E87.2 Acidosis; E87.0 Hyperosmolality and hypernatremia; N39.0 Urinary tract infection, site not specified; R55 Syncope and collapse; E88.09 Other disorders of plasma-protein metabolism, not elsewhere classified; Z68.29 Body mass index [BMI] 29.0-29.9, adult; D69.6 Thrombocytopenia, unspecified; E11.65 Type 2 diabetes mellitus with hyperglycemia; B96.20 Unspecified Escherichia coli [E. coli] as the cause of diseases classified elsewhere; E87.6 Hypokalemia; R00.1 Bradycardia, unspecified; Z91.81 History of falling
CPT/HCPCS: 31720; 36415; 36600; 70450-TC; 71045-TC; 76870-TC; 80048-TC; 80053-TC; 80076-TC; 81000-TC; 82248-TC; 82533; 82550-TC; 82728-TC; 82803-TC; 82962-TC; 83605-TC; 83615-TC; 83735-TC; 83880; 84100-TC; 84132-TC; 84484-TC; 85025-TC; 85378-TC; 85385-TC; 85610-TC; 85730-TC; 86140-TC; 86480; 86803; 86850-TC; 87040-TC; 87070-TC; 87081-TC; 87086-TC; 87186-TC; 87806; 87899; 92526; 92611-TC; 93308-TC; 94002-TC; 94003-TC; 94640-TC; 94760-TC; 94799-TC; C1751; G0378; J0456; J0692; J0696; J1265; J1650; J1815; J1940; J2920; J3480; J3490; J7030; J7040; J7050; J7060; U0003-CS